=== PATIENT | male | born 1995 ===

== ENCOUNTER 2016-05-23 12:09 | Emergency (ER) | payer MEDICAID ==
[2016-05-23 12:39] VITALS: PULSE 77; RESP 16; TEMP 97.4; O2SAT 99
--- NOTE | 2016-05-23 14:12 | ED PDOC ---
Syncope/Near Syncope/Dizzyness Time Seen by Provider: 05/23/16 13:30 Chief Complaint (Nursing): Dizziness/Lightheaded History Per: Patient History/Exam Limitations: no limitations Onset/Duration Of Symptoms: Hrs Current Symptoms Are (Timing): Gone Now Additional Complaint(s): 21-year-old male, presents to the emergency department s/p near syncopal episode. Patient states he was exercising at gym this morning, when he developed nausea, dizziness and blurred vision. Pt had an episode of non-bilious /non-bloody vomiting and ringing in the ears, resulting in him coming to the ED for evaluation. patient notes that he felt better after he had Gatorade and oatmeal. Symptoms have resolved, but he is complaining of a mild, persistent generalized headache. No Hx of cardiac disease at an early age in family. No other complaints at this time. Past Medical History Reviewed: Historical Data, Nursing Documentation, Vital Signs Vital Signs: Last Vital Signs Temp 97.4 F L 05/23/16 12:35 Pulse 77 05/23/16 12:35 Resp 16 05/23/16 12:35 BP 102/50 L 05/23/16 12:35 Pulse Ox 99 05/23/16 12:35 - Family History Family History: States: Unknown Family Hx - Home Medications Home Medications: Ambulatory Orders Medication Instructions Recorded No Known Home Med 05/23/16 - Allergies Allergies/Adverse Reactions: Allergies Allergy/AdvReac Type Severity Reaction Status Date / Time No Known Allergies Allergy Verified 05/23/16 14:53 Review of Systems ROS Statement: Except As Marked, All Systems Reviewed And Found Negative Constitutional: Negative for: Fever, Chills Cardiovascular: Negative for: Chest Pain Respiratory: Negative for: Shortness of Breath Gastrointestinal: Negative for: Nausea, Vomiting Musculoskeletal: Negative for: Neck Pain, Back Pain Skin: Negative for: Rash Neurological: Positive for: Headache, Dizziness. Negative for: Weakness, Numbness, Seizures Physical Exam - Reviewed Nursing Documentation Reviewed: Yes Vital Signs Reviewed: Yes - Physical Exam Appears: Positive for: Non-toxic, No Acute Distress Head Exam: Positive for: ATRAUMATIC, NORMOCEPHALIC Skin: Positive for: Warm, Dry. Negative for: Rash Eye Exam: Positive for: Normal appearance, EOMI Neck: Positive for: Painless ROM, Supple Cardiovascular/Chest: Positive for: Regular Rate, Rhythm Respiratory: Positive for: Normal Breath Sounds. Negative for: Accessory Muscle Use, Respiratory Distress Extremity: Positive for: Normal ROM Neurologic/Psych: Positive for: Alert, Oriented - Laboratory Results Result Diagrams: 05/23/16 14:18 05/23/16 14:18 - ECG O2 Sat by Pulse Oximetry: 99 Medical Decision Making Medical Decision Making: Impression: 21y/o M comes in s/p near syncopal episode while exercising at gym this morning. Plan: * EKG * CMP * CBC * Fingerstick * Reassess and Disposition EKG Rate 60bpm Rhythm NSR Interpret No acute ST/T wave changes. Normal axis. Scribe Attestation: Documented by Arley Rosales, acting as a scribe for SHAWN Abbott. Provider Attestation: All medical record entries made by the Scribe were at my direction and personally dictated by me. I have reviewed the chart and agree that the record accurately reflects my personal performance of the history, physical exam, medical decision making, and the department course for this patient. I have also personally directed, reviewed, and agree with the discharge instructions and disposition. Disposition - Clinical Impression Clinical Impression: Tremor - Patient ED Disposition Is Patient to be Admitted: No Counseled Patient/Family Regarding: Need For Followup - Disposition Disposition: Routine/Home Disposition Time: 14:56 Condition: STABLE Instructions: Fatigue (ED), Dehydration (ED)
--- NOTE | 2016-05-23 14:22 | CARD ---
APPROVED REPORT EKG Measurement Heart [id number] <Conclusion> Normal sinus rhythm Normal ECG
[2016-05-23 14:25] LABS: BASO % 0.2 % (0.0-2.0); EOS % 0.2 % (0.0-4.0); HEMATOCRIT 43.3 % (35.0-51.0); LYMPH % 7.5 % (20.0-40.0); MEAN CELL VOLUME 89.5 fl (80.0-94.0); MEAN CORPUSCULAR HGB CONC 32.4 g/dL (33.0-37.0); MEAN PLATELET VOLUME 9.1 fl (7.2-11.7); MONO # 0.9 K/uL (0.0-0.8); MONO % 6.8 % (0.0-10.0); NEUT # 11.9 K/uL (1.8-7.0); NEUT % 85.3 % (50.0-75.0); NRBC % 0.1 % (0.0-0.0); PLATELET COUNT 189 K/uL (130-400); RED CELL DISTRIBUTION WIDTH 13.8 % (11.5-14.5); WHITE BLOOD COUNT 13.9 K/uL (4.8-10.8)
[2016-05-23 14:45] LABS: ALB/GLOB RATIO 1.3 (1.0-2.1); ALKALINE PHOSPHATASE 76 U/L (38-126); ALT/SGPT 28 U/L (21-72); AST/SGOT 37 U/L (17-59); BILIRUBIN,TOTAL 0.7 mg/dl (0.2-1.3); BLOOD UREA NITROGEN 13 mg/dl (9-20); CALCIUM 9.4 mg/dL (8.4-10.2); CARBON DIOXIDE 27 mmol/L (22-30); CHLORIDE 101 mmol/L (98-107); GFR AFRICAN-AMERICAN > 60; GLUCOSE,RANDOM 95 mg/dL (75-110); POTASSIUM 3.9 MMOL/L (3.6-5.0); SODIUM 142 mmol/l (132-148); TOTAL PROTEIN 7.6 G/DL (6.3-8.2)
[2016-05-23 15:10] VITALS: BP 111/61
[2016-05-23 18:14] LABS: NEUTROPHIL 85 % (42-75); TOTAL CELLS COUNTED 100
[2016-05-23 18:15] LABS: LARGE PLATELETS PRESENT
== END 2016-05-23 15:09 | disposition home or self-care (01) ==
LOC: H.ER 12:09
DX: R25.1 Tremor, unspecified (principal)